=== PATIENT | female | born 1940 | race Two or more races ===

== ENCOUNTER 2025-04-13 10:23 | Emergency (ER) | payer OTHER ==
[~2025-04-13] VITALS: Ht 152.4 cm; Wt 60.0 kg
--- NOTE | 2025-04-13 11:15 | ED.PDOC ---
GI ASSESSMENT HPI Comments HPI: Poor Historian. 84-year-old female accompanied by her daughter at bedside. Patient is here for evaluation of abdominal hernia that is there for many years however in the last few months has been progressively getting larger with some slight discomfort. Last bowel movement was normal yesterday. No nausea or vomiting or diarrhea. Denies any other acute symptoms. Past Medical History: Arthritis, hypertension, Past Surgical History: Kidney resection, REVIEW OF SYSTEMS: CONSTITUTIONAL: Denies acute: fever, diaphoresis, chills, generalized weakness. HEAD: Denies acute: headache, photophobia Eyes: Denies acute: Double vision, vision loss, eye pain, eye discharge. EARS: Denies acute: tinnitus, hearing loss, ear discharge, ear pain, THROAT: Denies acute: sore throat, swelling, difficulty swallowing , pain with swallowing, change in voice. NECK: Denies acute: neck pain, neck swelling, stiff neck. HEART: Denies acute : chest pain, palpitations, LUNGS: Denies acute: SOB, wheezing, cough, hemoptysis ABDOMEN: Denies acute: Nausea, Vomiting, diarrhea, melena , hematemesis, hematochezia SKIN: Denies acute: rash, redness, lesions, itchiness. EXTREMITIES: Denies acute: calf pain, numbness, tingling, weakness, denies pain in extremity. Denies acute: Low back pain. Neuro: Denies acute: focal neurological deficit, motor or sensory focal neurological deficit, tremors, seizure like activity, confusion, dizziness, change in mental status, loss of bowel or bladder function, cauda equina like symptoms. : Denies acute: dysuria, hematuria, flank pain, increase in urinary frequency. PSYCH: Denies acute: hallucination, suicidal ideation, homicidal ideation. FEMALE: Denies acute: abnormal vaginal bleeding, foul odor, unusual discharge. PHYSICAL EXAM: General: ---mild-----acute distress, awake and alert. Head: normocephalic, atraumatic. Neck: supple, trachea is midline, no swelling. Throat: Normal phonation. Eyes:, no erythema, no purulent discharge, no proptosis, no icterus. Heart: regular rate, regular rhythm, no significant murmur appreciated. Lungs: no apparent respiratory distress, Able to speak in full sentences. No wheezing, no rhonchi, no crackles. No stridors Clear to auscultation bilaterally. Abdomen: Mild left-sided tender to palpation, soft, no guarding, no rebound, + bowel sounds. Noted left abdominal/inguinal hernia Neuro: Awake, Alert, oriented to name, self, situation, follows commands GCS=15. Speech is normal. Skin: no petechia, no purpura, no cyanosis, non-pale, not jaundice. Lower extremities: --no - Pitting edema no deformity, no focal swelling, no calf TTP. Makes eye contact. moves all four extremities. Face: no apparent facial droop. ED COURSE: DISCLAIMER: This medical document was created using an electronic medical record system with voice recognition software and computerized dictation system. Although this document has been carefully reviewed, there might still be some phonetic and typographical errors. Occasional wrong-word or "sound-alike" substitutions may have occurred due to the inherent limitations of voice recognition software. These areas are purely typographical due to imperfections of the software programs and do not reflect any compromise in the patient's medical care. Please read the chart carefully and recognize, using context, where these substitutions have occurred. Chief Complaint: Abdominal Pain Time Seen by MD: 10:29 Reviewed Notes: Allergies Allergies: Uncoded Allergies: PEN (Allergy, Unknown, 04/13/25) Information Source: Patient, Relative Was a procedure done? Was a procedure done?: No GI differential Dx Differential Diagnosis: Other ( DDX include Diverticulitis, colitis, gastroenteritis, acute abdomen, SBO, enteritis, constipation, volvulus, appendicitis, Gallbladder disease, choledocolithiasis, ascending cholangitis, pancreatitis, intraAbdominal mass/neoplasm, hepatitis, UTI, pylonephritis, kidney stone, aneurysm, dissection, Inflammatory bowel disease, gastroparesis, ischemic bowel, ovarian torsion, ovarian cyst/mass, tubo-ovarian abscess, PID, STD.) X-Ray, Labs, Meds, VS Vital Signs Date Time Temp Pulse Resp B/P (MAP) Pulse Ox O2 Delivery O2 Flow Rate FiO2 04/13/25 12:35 98.2 107 18 168/106 (126) 98 98.2 04/13/25 10:50 98.3 103 18 201/113 (142) 98 98.3 207/101 (136) Lab Test 04/13/25 11:26 04/13/25 11:08 Range/Units White Blood Count 8.6 4.4-10.8 10^3/uL Red Blood Count 4.26 4.0-5.20 10^6/uL Hemoglobin 13.4 12.2-16.2 g/dL Hematocrit 42.1 36.0-46.0 % Mean Corpuscular Volume 98.8 80.0-100.0 fL Mean Corpuscular Hemoglobin 31.4 28.0-32.0 pg Mean Corpuscular Hemoglobin Concent 31.8 L 32.0-36.0 g/dL Red Cell Distribution Width 14.8 H 11.8-14.3 % Platelet Count 257 140-450 10^3/uL Mean Platelet Volume 7.8 6.9-10.8 fL Neutrophils (%) (Auto) 73.3 37.0-80.0 % Lymphocytes (%) (Auto) 20.0 10.0-50.0 % Monocytes (%) (Auto) 5.1 0.0-12.0 % Eosinophils (%) (Auto) 1.1 0.0-7.0 % Basophils (%) (Auto) 0.5 0.0-2.0 % Neutrophils # (Auto) 6.3 1.6-8.6 10 ^3/uL Lymphocytes # (Auto) 1.7 0.4-5.4 10 ^3/uL Monocytes # (Auto) 0.4 0-1.3 10 ^3/uL Eosinophils # (Auto) 0.1 0-0.8 10 ^3/uL Basophils # (Auto) 0 0-0.2 10 ^3/uL Nucleated Red Blood Cells 0.0 % Sodium Level 144 136-145 mmol/L Potassium Level 3.2 L 3.5-5.1 mmol/L Chloride Level 110 H 98-107 mmol/L Carbon Dioxide Level 21 20-31 mmol/L Anion Gap 13 5-15 Blood Urea Nitrogen 13 9-23 mg/dL Creatinine 1.04 H 0.550-1.02 mg/dL Glomerular Filtration Rate Calc 53 >90 mL/min BUN/Creatinine Ratio 12.5 10.0-20.0 Serum Glucose 104 74-106 mg/dL Lactic Acid Level 1.7 0.4-2.0 mmol/L Calcium Level 9.9 8.7-10.4 mg/dL Total Bilirubin 0.8 0.2-1.0 mg/dL Aspartate Amino Transferase (AST) 26 13-40 U/L Alanine Aminotransferase (ALT) 17 7-40 U/L Alkaline Phosphatase 81 46-116 U/L Total Protein 7.2 5.7-8.2 g/dL Albumin 4.5 3.2-4.8 g/dL Urine Color Yellow Yellow Urine Clarity Clear Clear Urine pH 6.0 5.0-9.0 Urine Specific [place] 1.033 1.001-1.035 Urine Protein 1+ H Negative Urine Ketones Trace Negative Urine Blood Negative Negative /uL Urine Nitrite Negative Negative Urine Bilirubin Negative Negative Urine Urobilinogen 2 H Negative mg/dL Urine Leukocyte Esterase 1+ Negative /uL Urine RBC 3 0 - 4 /hpf Urine Microscopic WBC 6 H 0-5 /HPF Urine Squamous Epithelial Cells Few <5 /hpf Urine Bacteria None seen None Seen /hpf Urine Mucus Few None Seen Urine Glucose Normal Normal mg/dL [place] [id number] Ph: [phone] DIAGNOSTIC IMAGING Diagnostic Imaging Report : [id number] Signed PATIENT: ELOY GOODE I ACCT: [id number] UNIT: [id number] : 1940 LOC: ER ROOM / BED: / AGE / SEX: 84 / F ADM STATUS: REG ER SERVICE 1035 ORDERING PHYSICIAN: KIERRA FREIRE DO PROCEDURE(s): ABPL - CT AB PEL WO CON-NO ORAL OR IV REASON: ABD PAIN ORDER NUMBER(s): [id number], ACCESSION NUMBER(s): [id number] CT CT AB PEL WO CON-NO ORAL OR IV INDICATION: ABD PAIN EXAM DATE: 04/13/2025 10:42 AM COMPARISON: None RADIATION DOSE: CTDIvol: 6.97 mGy, DLP: 323.05 mGy*cm PROCEDURE: Helical CT images were obtained of the abdomen and pelvis without IV contrast Sagittal and coronal reconstructions are provided. ORAL CONTRAST: None. ADDITIONAL IMAGES / REFORMATS: None All CT scans at this medical facility are performed using dose modulation techniques as appropriate to a performed exam including the following: Automated exposure control was utilized; adjustment of the MA and/or KV according to patient size; and use of iterative reconstruction technique. FINDINGS: LUNG BASE: Normal. LIVER: Normal. GALLBLADDER AND BILIARY TREE: Janett clips. No intra- or extrahepatic biliary ductal dilation. PANCREAS: Normal. SPLEEN: Normal. BOWEL: Normal. Normal appendix. ADRENALS: Normal. KIDNEYS AND URETER: Surgically absent left kidney. BLADDER: Normal. REPRODUCTIVE ORGANS: Absent uterus. LYMPH NODES:No lymphadenopathy. PERITONEUM: No ascites or free air. No other fluid collection. VESSELS: Scattered atherosclerotic calcifications are noted. RETROPERITONEUM: Normal. ABDOMINAL WALL: Large left lateral ventral wall hernia contains loops of bowel. BONES: Scattered osseous degenerative changes are noted. IMPRESSION: Large left lateral ventral wall hernia contains loops of nondilated bowel. ATED BY: ALEN MENENDEZ MD DICTATED DATE/TIME: 04/13/25 111 SIGNED BY: ALEN MENENDZE MD SIGNED DATE/TIME: 04/13/25 1116 CC: SEPSIS Sepsis Screen Physician Orders Ct Ab Pel Wo Con-No Oral Or Iv (04/13/25 10:35) Inspector Casing (04/13/25 ) Vital Signs Date Time Temp Pulse Resp B/P (MAP) Pulse Ox O2 Delivery O2 Flow Rate FiO2 04/13/25 12:35 98.2 107 18 168/106 (126) 98 98.2 04/13/25 10:50 98.3 103 18 201/113 (142) 98 98.3 207/101 (136) Laboratory Tests Test 04/13/25 11:26 Lactic Acid Level 1.7 mmol/L (0.4-2.0) White Blood Count 8.6 10^3/uL (4.4-10.8) Departure 1 Departure Time of Disposition: 13:11 Impression: Primary Impression: Abdominal wall hernia Additional Impression: UTI (urinary tract infection) Disposition: 01 HOME / SELF CARE / HOMELESS Condition: Stable Additional Instructions: Additional instructions: You MUST follow-up with your primary care/family doctor in 1 to 2 days. If you are unable to see your primary care/family doctor, please return to our emergency room for re-assessment and re-evaluation in 1 to 2 days. Return to the emergency room here in our facility or to the nearest ER [facility] if your symptoms change or worsen. CONSULTATIONS: you MUST Follow-up for consultation as soon as possible with: -general surgery in 1-2 days. Please call for appointment. You MUST call the consultants office yourself to make an appointment. You may need to arrange that through your insurance and/or your primary/family doctor. If you are unable to see the retirement consultant in 1 to 2 days, you must return to our emergency room (or any other ER of your choice) for re-assessment and re- evaluation. Adequate fluid hydration. Below is a copy of your radiological report for follow up: [place] [id number] Ph: [phone] DIAGNOSTIC IMAGING Diagnostic Imaging Report : [id number] Signed PATIENT: ELOY GOODE I ACCT: [id number] UNIT: [id number] : 1940 LOC: ER ROOM / BED: / AGE / SEX: 84 / F ADM STATUS: REG ER SERVICE 1035 ORDERING PHYSICIAN: KIERRA FREIRE DO PROCEDURE(s): ABPL - CT AB PEL WO CON-NO ORAL OR IV REASON: ABD PAIN ORDER NUMBER(s): [id number], ACCESSION NUMBER(s): [id number] CT CT AB PEL WO CON-NO ORAL OR IV INDICATION: ABD PAIN EXAM DATE: 04/13/2025 10:42 AM COMPARISON: None RADIATION DOSE: CTDIvol: 6.97 mGy, DLP: 323.05 mGy*cm PROCEDURE: Helical CT images were obtained of the abdomen and pelvis without IV contrast Sagittal and coronal reconstructions are provided. ORAL CONTRAST: None. ADDITIONAL IMAGES / REFORMATS: None All CT scans at this medical facility are performed using dose modulation techniques as appropriate to a performed exam including the following: Automated exposure control was utilized; adjustment of the MA and/or KV according to patient size; and use of iterative reconstruction technique. FINDINGS: LUNG BASE: Normal. LIVER: Normal. GALLBLADDER AND BILIARY TREE: Janett clips. No intra- or extrahepatic biliary ductal dilation. PANCREAS: Normal. SPLEEN: Normal. BOWEL: Normal. Normal appendix. ADRENALS: Normal. KIDNEYS AND URETER: Surgically absent left kidney. BLADDER: Normal. REPRODUCTIVE ORGANS: Absent uterus. LYMPH NODES:No lymphadenopathy. PERITONEUM: No ascites or free air. No other fluid collection. VESSELS: Scattered atherosclerotic calcifications are noted. RETROPERITONEUM: Normal. ABDOMINAL WALL: Large left lateral ventral wall hernia contains loops of bowel. BONES: Scattered osseous degenerative changes are noted. IMPRESSION: Large left lateral ventral wall hernia contains loops of nondilated bowel. ATED BY: ALEN MENENDEZ MD DICTATED DATE/TIME: 04/13/25 1116 SIGNED BY: ALEN MENENDEZ MD SIGNED DATE/TIME: 04/13/25 1116 CC: e-Prescriptions Cephalexin Monohydrate (Cephalexin) 500 Mg Tab 1 TAB PO TID for 7 Days, #21 TAB Prov: KIERRA FREIRE DO 04/13/25 Discharged With: Self, Relative Critical Care Note Critical Care Time?: No KIERRA FREIRE DO Apr 13, 2025 11:15
--- NOTE | 2025-04-13 11:19 | DVH ---
CT CT AB PEL WO CON-NO ORAL OR IV INDICATION: ABD PAIN EXAM DATE: 04/13/2025 10:42 AM COMPARISON: None RADIATION DOSE: CTDIvol: 6.97 mGy, DLP: 323.05 mGy*cm PROCEDURE: Helical CT images were obtained of the abdomen and pelvis without IV contrast Sagittal and coronal reconstructions are provided. ORAL CONTRAST: None. ADDITIONAL IMAGES / REFORMATS: None All C T scans at this medical facility are performed using dose modulation techniques as appropriate to a p erformed exam including the following: Automated exposure control was utilized; adjustment of the MA and/or KV according to patient size; and use of iterative reconstruction technique. FINDINGS: LUNG BASE: Normal. LIVER: Normal. GALLBLADDER AND BILIARY TREE: Janett clips. No intra- or extrahepatic biliary ductal dilation. PANCREAS: Normal. SPLEEN: Normal. BOWEL: Normal. Normal appendix. ADRENALS: Normal. KIDNEYS AND URETER: Surgically absent left kidney. BLADDER: Normal. REPRODUCTIVE ORGANS: Absent uterus. LYMPH NODES:No lymphadenopathy. PERITONEUM: No ascites or free air. No other fluid collection. VESSELS: Scattered atherosclerotic calcifications are noted. RETROPERITONEUM: Normal. ABDOMINAL WALL: Large left lateral ventral wall hernia contains loops of bowel. BONES: Scattered osseous degenerative changes are noted. IMPRESSION: Large left lateral ventral wall hernia contains loops of nondilated bowel.
[2025-04-13 11:43] LABS: Urine Protein, UAD 1+ (Negative)
[2025-04-13 12:07] LABS: Hematocrit 42.1 % (36.0-46.0); Hemoglobin 13.4 g/dL (12.2-16.2); Mean Corpuscular Hemoglobin 31.4 pg (28.0-32.0); Mean Corpuscular Volume 98.8 fL (80.0-100.0); Nucleated Red Blood Cells % 0.0 %
[2025-04-13 12:20] LABS: Alanine Aminotransferase 17 U/L (7-40); Albumin 4.5 g/dL (3.2-4.8); Alkaline Phosphatase 81 U/L (46-116); Anion Gap 13 (5-15); BUN/Creatinine Ratio 12.5 (10.0-20.0); Blood Urea Nitrogen 13 mg/dL (9-23); Calcium 9.9 mg/dL (8.7-10.4); Carbon Dioxide 21 mmol/L (20-31); Glucose 104 mg/dL (74-106); Potassium 3.2 mmol/L (3.5-5.1); Sodium 144 mmol/L (136-145); Total Protein 7.2 g/dL (5.7-8.2)
[2025-04-13 12:21] LABS: Bilirubin, Total 0.8 mg/dL (0.2-1.0); Chloride 110 mmol/L (98-107)
[2025-04-13 12:35] VITALS: BP 168/106; PULSE 107; RESP 18; TEMP 98.2; O2SAT 98
[2025-04-13] MEDS ORDERED: CEPH500T PO (13:44)
== END 2025-04-13 14:01 | disposition home or self-care (01) ==
LOC: ER 10:23
DX: K43.9 Ventral hernia without obstruction or gangrene (principal); N39.0 Urinary tract infection, site not specified; I10 Essential (primary) hypertension; M19.90 Unspecified osteoarthritis, unspecified site
CPT/HCPCS: 36415; 74176; 80053; 81001; 83605; 85025